=== PATIENT | male | born 1965 | race Caucasian/White ===

== ENCOUNTER 2017-04-04 10:34 | Emergency (ER) | payer MEDICAID ==
[2017-04-04 11:00] LABS: BASOPHILS 0.3 % (0-2); EOSINOPHILS 0.8 % (0-7); HEMATOCRIT 46.8 % (42.0-54.0); HEMOGLOBIN 16.6 g/dL (13.5-17.5); IMMATURE GRANULOCYTES 0.1 % (0-5); LYMPHOCYTES 17.2 % (15-50); MCH 31.1 pg (26.0-34.0); MCHC 35.5 g/dL (31.0-37.0); MCV 87.8 fL (80.0-100.0); MEAN PLATELET VOLUME 10.2 fL (7.4-10.4); MONOCYTES 5.9 % (2-11); NEUTROPHILS 75.7 % (40-80); PLATELET COUNT 195 10x3/uL (130-400); RBC 5.33 10x6/uL (4.20-6.10); RDW 12.7 % (11.5-14.5); WBC 7.1 10x3/uL (4.8-10.8)
[2017-04-04 11:25] LABS: ALBUMIN 4.1 g/dL (3.4-5.0); ALKALINE PHOSPHATASE 51 U/L (46-116); ALT (SGPT) 28 U/L (10-68); CALC OSMOLALITY 272 mosm/kg (275-300); CARBON DIOXIDE 30.5 mmol/L (21.0-32.0); CHLORIDE - SERUM 99 mmol/L (98-107); CREATININE - SERUM 1.2 mg/dL (0.6-1.3); GLUCOSE 108 mg/dL (74-106); POTASSIUM - SERUM 3.9 mmol/L (3.5-5.1); SODIUM 135 mmol/L (136-145); UREA NITROGEN 18 mg/dL (7-18); eGFR NON AFRICAN AMERICAN 68 mL/min (90-120)
[2017-04-04 11:36] LABS: CHOL - HDL RATIO 3.4 ratio (2.3-4.9); CHOLESTEROL, TOTAL 149 mg/dL (0-200); CKMB 0.5 U/L (0.0-3.6); CREATINE KINASE 83 UL (21-232); HDL CHOLESTEROL 44 mg/dL (32-96); LDL CHOLESTEROL 91 mg/dL (0-100); LDL-HDL RATIO 2.1 ratio (1.5-3.5); TRIGLYCERIDE 73 mg/dL (30-200); TROPONIN-I 0.034 ng/mL (0.000-0.060)
[2017-04-04 12:46] LABS: INR 1.02 (0.85-1.17)
[2017-04-04 14:37] LABS: APPEARANCE CLEAR (CLEAR); BILIRUBIN NEGATIVE (NEGATIVE); COLOR YELLOW (YELLOW); GLUCOSE NEGATIVE (NEGATIVE); KETONE NEGATIVE (NEGATIVE); NITRITE NEGATIVE (NEGATIVE); PROTEIN NEGATIVE (NEGATIVE); SPECIFIC GRAVITY 1.015 (1.005-1.020); UROBILINOGEN NORMAL (NORMAL)
== END 2017-04-04 14:33 | disposition home or self-care (01) ==
LOC: D.ER 10:34
PROVIDERS: Family Medicine; Nurse Practitioner Family
DX: R53.1 Weakness (principal); R00.1 Bradycardia, unspecified

== ENCOUNTER 2017-05-06 08:54 | Outpatient (CLI) | payer MEDICAID ==
[~2017-05-06] VITALS: Ht 177.8 cm; Wt 86.8 kg
--- NOTE | ~2017-05-06 | OP ---
PATIENT NAME: SAIGE DE LA TORRE MEDICAL RECORD: [id number] :69 LOCATION:D.CAT ADMISSION DATE: SURGEON: SAIGE ROQUE MD DATE OF OPERATION: 05/06/2017 PROCEDURES: 1. Left heart catheterization. 2. Selective coronary angiography. 3. Left ventriculogram. INDICATION: Chest pain compatible with angina. PROCEDURE IN DETAIL: After informed consent was obtained and after a detailed explanation of the risks, benefits as well as alternative therapies, the patient elected to proceed with angiogram and angioplasty. The right radial area was prepped and draped in normal sterile fashion. The right radial artery was cannulated via modified Seldinger technique with placement of 6-Bulgarian sheath. All catheters exchanged through this sheath. FINDINGS: Left ventriculogram was performed in standard 30-degree BRODERICK view, reveals good cardiac wall motion throughout all segments. Overall ejection fraction estimated at 60%. SELECTIVE CORONARY ANGIOGRAPHY: 1. Left main showed no significant angiographic disease. 2. Left main, left anterior descending, left circumflex, right coronary artery are all smooth-walled vessels with no angiographic evidence of coronary artery disease. OVERALL IMPRESSION: 1. No angiographic evidence of coronary artery disease. 2. Normal left heart pressures. 3. Normal left ventricular systolic function. Chest pain is noncardiac in etiology. No further cardiac workup needs to be ascertained. TRANSINT:[id number] Voice Confirmation ID: [id number] DOCUMENT ID: [id number] SAIGE ROQUE MD at 1140 CC: [id number] DICTATION DATE: 05/06/17 1547 [facility] [employer] [facility] AGENT: 05/06/17 1626 [facility] CLI 05/06/17 [place] [id number]
--- NOTE | ~2017-05-06 | HEMODYNAMI ---
PATIENT:SAIGE DE LA TORRE MEDICAL RECORD: [id number] : 69 LOCATION:DMacCAT ADMISSION DATE: 05/06/17 Generatedon:05/06/201715:46 Patient name: SAIGE DE LA TORRE Patient #: [id number] SSN: D OB: 1965 Date of study: 05/06/2017 Page: Of Hemodynamic Procedure Report Patient Data Patient Demographics Procedure consent was obtained First Name: SAIGE Gender: Male Last Name: BRITT : 1965 Middle Initial: PRETTY Age: 52 year(s) Patient #: [id number] Race: Unknown Additional ID: [id number] Contact details [address]: [address] [place] [address] State: [place] City: [place] Zip code: [address] Admission Admission Data Admission Date: 05/06/2017 Admission Time: 8:54 Admit Source: Other Procedure Procedure Types Cath Procedure Diagnostic Procedure C LHC w/Coronaries Procedure Description Procedure Date Procedure Date: 05/06/2017 Procedure Start Time: 15:35 Procedure End Time: 15:45 Procedure Staff Name Function Saige Echevarria MD Performing Physician Ac Mancilla RT Monitor Paul Borjas RT Scrub Leny Chavarria RN Nurse Procedure Data Cath Procedure Fluoroscopy Diagnostic fluoroscopy Total fluoroscopy Time: 2.5 time: 2.5 min min Diagnostic fluoroscopy Total fluoroscopy dose: 181 dose: 181 mGy mGy Contrast Material Contrast Material Type Amount (ml) Isovue 300 47 Entry Location Entry Primary Successful Side Size Upsize Upsize Entry Closure Michaels ccessful Closure Location (Fr) 1 (Fr) 2 (Fr) Remarks Device Remarks Radial Right 6 Fr Mechanical artery Short Compression Estimated blood loss: 10 ml Diagnostic catheters Device Type Used For End Catheter Placement DIAGNOSTIC Berwick 110cm 5 Procedure Fr catheter ([id number]) DIAGNOSTIC AR 2 MOD 5 Fr Procedure catheter ([id number]) Procedure Complications No complications Procedure Medications Medication Administration Route Dosage Oxygen NC 2 l/min Lidocaine 2% added to field 20 Heparin Flush Bag added to field 2 bags (1000units/500ml NS) 0.9% NaCl I.V. 100 ml/hr Versed I.V. 1 mg Fentanyl I.V. 50 mcg Versed I.V. 1 mg Fentanyl I.V. 50 mcg Radial Cocktail I.A. 1 syringe (Verapomil 2mg/Nitro 400mcg/Heparin 1500units) Hemodynamics Rest Heart Rate: 50 (bpm) Snapshots Pre Cath Intra NCS Post Cath Vital Signs Time Heart Resp SPO2 etCO2 NIBP Rhythm Pain Sedation Rate (ipm) (%) (mmHg) (mmHg) Status Level (bpm) 15:23:35 53 18 95 12.5 121/74(91) NSR 0 (11) 10(A) , No pain 15:27:51 49 17 96 11.8 120/72(91) NSR 0 (11) 10(A) , No pain 15:32:07 50 12 94 31.7 125/76(97) NSR 0 (11) 10(A) , No pain 15:36:27 60 15 94 20 108/66(83) NSR 0 (11) 9(A) , No pain 15:40:39 55 16 95 29.4 118/68(93) NSR 0 (11) 9(A) , No pain 15:44:57 57 14 94 30.2 129/70(87) NSR 0 (11) 10(A) , No pain Medications Time Medication Route Dose Verified Delivered Reason Notes Effectiveness by by 15:33:19 Oxygen NC 2 l/min Saige Micheel used for Wale Chavarria RN procedure 15:33:26 Lidocaine 2% added 20ml Saige Cano for local to vial Wale Echevarria MD anesthetic field 15:33:32 Versed I.V. 1 mg Saige Michele for sedation Wale Chavarria RN 15:33:32 Heparin Flush added 2 bags Saige Cano used for Bag to Wale Echevarria MD procedure (1000units/500ml field NS) 15:33:38 Fentanyl I.V. 50 mcg Saige Michele for sedation Wale Chavarria RN 15:33:42 0.9% NaCl I.V. 100 Saige Michele Per ml/hr Wale Chavarria RN physician 15:36:00 Radial Cocktail I.A. 1 Saige Cano for (Verapomil syringe Wale Echevarria MD vasodilation 2mg/Nitro 400mcg/Heparin 1500units) 15:39:46 Versed I.V. 1 mg Saige Michele for sedation Wale Chavarria RN 15:39:50 Fentanyl I.V. 50 mcg Saige Michele for sedation Wale Chavarria RN Procedure Log Time Note 15:00:55 Ac Mancilla RT(R) sent for patient. Start room use. 15:11:22 Informed consent obtained and on chart 15:11:48 Admit Source: Other 15:11:51 Diagnostic Cath status Elective 15:12:00 Time tracking: Regular hours 15:12:03 Plan of Care:Hemodynamics will remain stable., Cardiac rhythm will remain stable., Comfort level will be maintained., Respiratory function will remain adequate., Patient/ family verbilizes understanding of procedure., Procedure tolerated without complication., Recovers from procedure without complications.. 15:12:07 Patient received from Pre/Post Procedure Room to CCL 3 Alert and oriented. Tansferred to table in Supine position. 15:12:08 Warm blankets applied, and genet hugger turned on for patient comfort. 15:12:09 Correct patient and procedure confirmed by team. 15:22:26 ECG and BP/O2 sat monitors applied to patient. 15:22:27 Vital chart was started 15:26:48 Baseline sample Acquired. 15:26:57 Rhythm: sinus rhythm 15:27:01 Full Disclosure recording started 15:29:20 H&P Date Dictated: 04/09/2017 Within 30 days and on chart., H&P Addendum completed by physician on day of procedure. (MUST COMPLETE FOR ALL OUTPATIENTS). 15:29:21 Pre-procedure instructions explained to patient. 15:29:21 Pre-op teaching completed and patient verbalized understanding. 15:29:37 Family in waiting room. 15:29:38 Patient NPO since Midnight. 15:29:39 Is the patient allergic to Iodine/contrast media? No. 15:29:41 Is patient on blood thinner?Yes 15:29:44 ACC The patient was administered the following blood thiners within the last 24 hours: ACCPlavix 15:29:46 Patient diabetic? Yes. 15:29:59 If diabetic: On Metformin? No 15:30:02 Previous problem with sedation/anesthesia? No ? 15:30:03 Snore? Yes 15:30:11 Sleep apnea? No 15:30:12 Deviated septum? No 15:30:13 Opens mouth fully? Yes 15:30:14 Sticks out tongue? Yes 15:30:16 Airway obstruction? No ? 15:30:30 Dentures? No ? 15:30:35 Pre procedure: right dorsailis pedis pulse 1+ Palpable, but thready & weak; easily obliterated 15:30:37 Modified John's test Ulnar < 7 seconds 15:30:39 Patient pain scale 0/10 ?. 15:31:10 IV patent on arrival in left forearm with 0.9% NaCl at [facility]. 15:31:11 Lab results completed and on chart. 15:31:14 Right Radial & Right Groin area was prepped with chlora-prep and draped in sterile fashion 15:31:15 Alarms reviewed by R. N. 15:31:16 Sharps counted by scrub and verified by R.N. 15:31:17 --------ALL STOP TIME OUT------ 15:31:17 Final Timeout: patient, procedure, and site verified with staff and physician. All members of the team are in agreement. 15:31:25 Right Radial & Right Groin site verified by team. 15:31:28 Physical assessment completed. ASA score P 2 - A patient with mild systemic disease as per Saige Echevarria MD. 15:31:30 Sedation plan: IV Moderate Sedation Medication:Versed, Fentanyl 15:33:19 Oxygen 2 l/min NC was administered by Leny Chavarria RN; used for procedure; 15:33:26 Lidocaine 2% 20ml vial added to field was administered by Saige Echevarria MD; for local anesthetic; 15:33:32 Versed 1 mg I.V. was administered by Leny Chavarria RN; for sedation; 15:33:32 Heparin Flush Bag (1000units/500ml NS) 2 bags added to field was administered by Saige Echevarria MD; used for procedure; 15:33:38 Fentanyl 50 mcg I.V. was administered by Leny Chavarria RN; for sedation; 15:33:42 0.9% NaCl 100 ml/hr I.V. was administered by Leny Chavarria RN; Per physician; 15:34:38 Use device set Radial Dx or PCI 15:34:41 Tegaderm 4 x 4 (1626W) opened to sterile field. 15:34:41 ACIST Manifold (69588) opened to sterile field. 15:34:43 ACIST Hand Control (58600) opened to sterile field. 15:34:44 ACIST Syringe (89010) opened to sterile field. 15:34:44 Medline Cath Pack ([id number]) opened to sterile field. 15:34:45 Bag Decanter (2002S) opened to sterile field. 15:34:45 SHEATH 6FR Slender ([id number]) opened to sterile field. 15:34:46 DIAGNOSTIC WIRE .035 260cm J wire (554945) opened to sterile field. 15:34:47 MBrace Wrist Support ([id number]) opened to sterile field. 15:35:04 Procedure started. 15:35:19 Local anesthetic to right radial artery with Lidocaine 2% by Saige Echevarria MD.INITIAL ACCESS ONLY 15:35:41 A 6 Fr Short sheath was inserted into the Right Radial artery 15:35:56 A DIAGNOSTIC [place] 110cm 5 Fr catheter (872017) was advanced over the wire and used for Procedure. 15:36:00 Radial Cocktail (Verapomil 2mg/Nitro 400mcg/Heparin 1500units) 1 syringe I.A. was administered by Saige Echevarria MD; for vasodilation; 15:36:04 LV angiography performed. 15:36:06 LV gram done using BRODERICK 15:36:35 EF : 60 % 15:36:44 LCA angiography performed. 15:39:23 Catheter exchanged over wire. 15:39:36 A DIAGNOSTIC AR 2 MOD 5 Fr catheter ([id number]) was advanced over the wire and used for Procedure. 15:39:46 Versed 1 mg I.V. was administered by Leny Chavarria RN; for sedation; 15:39:50 Fentanyl 50 mcg I.V. was administered by Leny Chavarria RN; for sedation; 15:39:55 RCA angiography performed. 15:39:58 Catheter exchanged over wire. 15:40:41 TR BAND Standard ([id number]) opened to sterile field. 15:40:52 Sheath removed intact; hemostasis achieved with Mechanical Compression to the Right Radial artery. 15:40:54 Procedure ended.(Physican Out) 15:41:09 Fluoroscopy time 02.50 minutes. 15:41:20 Fluoroscopy dose: 181 mGy 15:41:20 Flurop Dose total: 181 15:42:30 Contrast amount:Isovue 300 47ml. 15:42:32 Sharps counted by scrub and verified by R.N. 15:42:34 Insertion/operative site no bleeding no hematoma. 15:43:40 TR band inflated with 12cc of air. 15:43:42 Post Procedure Pulses reassessed and unchanged 15:43:47 Post-procedure physical assessment completed. ASA score P 2 - A patient with mild systemic disease as per Saige Echevarria MD. 15:43:50 Post procedure rhythm: unchanged. 15:44:14 Estimated blood loss: 10 ml 15:44:16 Post procedure instruction explained to patient.Patient verbalizes understanding. 15:44:17 Patient needs reinforcement of post procedure teaching. 15:44:35 Procedure and supply charges have been captured, reviewed, submitted and are correct. 15:44:38 Procedure Complication : No complications 15:45:12 Vital chart was stopped 15:45:14 See physician's report for complete and final results. 15:45:16 Report given to Pre/Post Procedure Room. 15:45:18 Patient transfered to Pre/Post Procedure Room with Stretcher. 15:45:20 Procedure ended. 15:45:20 Full Disclosure recording stopped 15:45:22 End room use (Document Last) Device Usage Item Name Manufacture Quantity Catalog Hospital Part Current Minima l Lot# / Number Charge Number Stock Stock Serial# Code Tegaderm 4 x 3M 1 1626W [id number] [id number] 5 4 (1626W) ACIST Acist 1 03082 290004 320038 194629 5 Manifold Medical (10884) Systems Inc ACIST Hand Acist 1 44711 013028 330730 958996 5 Control Medical (31441) Systems Inc ACIST Acist 1 19417 568161 098925 755726 20 Syringe Medical (32216) Systems Inc Medline Cath Cardinal 1 [id number] 624450 65951 593617 5 Pack Health ([id number]) Bag Decanter Microtek 1 392238 17444 656785 5 () Medical Inc. SHEATH 6FR Terumo 1 [id number] 210246 237975 096482 40 Slender ([id number]) DIAGNOSTIC St Edmundo 1 221480 871036 951561 557955 30 WIRE .035 260cm J wire (129335) MBrace Wrist Advanced 1 140-0250-00 364705 49954 035018 5 Support Vascular ([id number]) Dynamics DIAGNOSTIC Terumo 1 40-1603 861363 667458 701954 5 [place] 110cm 5 Fr catheter (614585) DIAGNOSTIC Cardinal 1 [id number] 816475 705680 196746 20 AR 2 MOD 5 Health Fr catheter (082370Z) TR BAND Terumo 1 [id number] 860123 024902 683058 40 Standard ([id number]) Signature Audit [place] Stage Time Signature Unsigned Intra-Procedure 05/06/2017 Ac Mancilla 3:46:39 PM RT(R) Signatures Monitor : Ac Mancilla RT Signature : Date : Time : [place] [id number] [place] [address]
[2017-05-06] MEDS ORDERED: VASERETIC 10-251 TAB PO (09:58)
[2017-05-06] MEDS ORDERED: CLOPIDOGREL TAB 75M PO (09:58)
[2017-05-06] MEDS ORDERED: TOPROL XL25 MG PO (09:59)
[2017-05-06 10:28] VITALS: BP 120/80; Ht 177.8 cm; Wt 86.8 kg
[2017-05-06 10:44] LABS: BASOPHILS 0.3 % (0-2); EOSINOPHILS 0.7 % (0-7); HEMATOCRIT 46.6 % (42.0-54.0); HEMOGLOBIN 16.3 g/dL (13.5-17.5); IMMATURE GRANULOCYTES 0.2 % (0-5); LYMPHOCYTES 21.1 % (15-50); MCH 30.7 pg (26.0-34.0); MCV 87.8 fL (80.0-100.0); MEAN PLATELET VOLUME 10.2 fL (7.4-10.4); MONOCYTES 7.2 % (2-11); NEUTROPHILS 70.5 % (40-80); PLATELET COUNT 173 10x3/uL (130-400); RBC 5.31 10x6/uL (4.20-6.10); RDW 12.8 % (11.5-14.5)
[2017-05-06 10:49] LABS: ANION GAP 13.8 mmol/L (8-16); CALCIUM 9.2 mg/dL (8.5-10.1); CARBON DIOXIDE 26.9 mmol/L (21.0-32.0); CREATININE - SERUM 1.3 mg/dL (0.6-1.3); POTASSIUM - SERUM 3.7 mmol/L (3.5-5.1)
== END 2017-05-06 17:50 | disposition home or self-care (01) ==
LOC: D.CATH 08:54
PROVIDERS: Internal Medicine Interventional Cardiology
DX: I20.9 Angina pectoris, unspecified (principal); R06.02 Shortness of breath; R94.30 Abnormal result of cardiovascular function study, unspecified; I49.3 Ventricular premature depolarization; R00.2 Palpitations; Z01.812 Encounter for preprocedural laboratory examination